=== PATIENT | female | born 1970 | race Caucasian/White ===

== ENCOUNTER → 2020-03-07 | Day surgery (SDC) | payer BC ==
[2020-03-03 11:28] VITALS: BMI 23.0
[~2020-03-07] MED LIST: DEXAMETHASONE SOD PHOSPHATE 4 MG/ML 1 ML VIAL IV ONE; HYDROmorphone 0.5 MG/0.5 ML SYRINGE IVP PRN; KETOROLAC 15 MG/ML 1 ML VIAL ONE; LACTATED RINGERS 1,000 ML IV SCH; LIDOCAINE 1% (10MG/ML) FOR IV START INTRADERMA PRN; MIDAZOLAM 2 MG/2 ML VIAL IV PRN; MIDAZOLAM 2 MG/2 ML VIAL ONE; ONDANSETRON 4 MG/2 ML VIAL IVP ONE; PROPOFOL 10 MG/ML 20 ML VIAL IV ONE; Pre Op ABX Message 1 EACH MISC MISCELLANE ONE; fentaNYL (PF) 50 MCG/ML 2 ML AMP ONE
[2020-03-07 11:24] VITALS: RESP 16
--- NOTE | 2020-03-07 12:43 | P.OP ---
Date of Procedure: 03/07/20 Preoperative Diagnosis: Postmenopausal bleeding Postoperative Diagnosis: Same Procedure(s) Performed: D&C with hysteroscopy Anesthesia: SATYA Surgeon: Kirill Spring Estimated Blood Loss (ml): 5 IV fluids (ml): 500 Pathology: other (Urine curettings) Condition: stable Disposition: same day Operative Findings: Pathology pending Description of Procedure: was taken to the operating suite where general anesthetic was found be adequate. She was prepped and draped in the normal sterile fashion and placed in dorsal lithotomy position. Initially a weighted speculum was inserted in the vagina and the anterior lip cervix identified and grasped with a Allis clamp. Uterus was then sounded to 10 cm and cervix was dilated. Camera was then inserted with no specific pathology noted visually it was removed and sharp curettings of the endometrium were obtained. All this tissue was collected placed on Telfa and sent to pathology for evaluation. Instruments were then removed. Sponge, lap, needle counts were all correct 2 and patient was then taken to the recovery room in stable and satisfactory condition. Plan - Discharge Summary Discharge Rx Participant: No New Discharge Prescriptions: No Action Meloxicam [Mobic] 15 mg PO DAILY PRN PRN Reason: Pain Discharge Medication List Meloxicam [Mobic] 15 mg PO DAILY PRN 03/03/20 [History] Follow up Appointment(s)/Referral(s): Kirill Spring DO [Doctor of Osteopathic Medicine] - 1 Week Activity/Diet/Wound Care/Special Instructions: No heavy lifting, limit stairs and driving, and pelvic rest. If any high temperatures, heavy bleeding, or severe pain call my office Discharge Disposition: HOME SELF-CARE
[2020-03-07 12:58] VITALS: TEMP 96.8
[2020-03-07 13:34] VITALS: PULSE 85
[2020-03-07 14:06] VITALS: BP 111/65
== END | disposition home or self-care (01) ==
LOC: OR 11:05
PROVIDERS: ATTEND Obstetrics & Gynecology
DX: R93.89 Abnormal findings on diagnostic imaging of other specified body structures (principal); N95.0 Postmenopausal bleeding; N93.8 Other specified abnormal uterine and vaginal bleeding; Z98.890 Other specified postprocedural states; G89.29 Other chronic pain; Z84.89 Family history of other specified conditions; F32.9 Major depressive disorder, single episode, unspecified; M19.90 Unspecified osteoarthritis, unspecified site; Z81.8 Family history of other mental and behavioral disorders; Z82.49 Family history of ischemic heart disease and other diseases of the circulatory system; Z83.3 Family history of diabetes mellitus; Z79.1 Long term (current) use of non-steroidal anti-inflammatories (NSAID); Z79.899 Other long term (current) drug therapy
CPT/HCPCS: 58558; 81025; 88305; J2250; J1100; J2405; J3010; J1885; J2704